=== PATIENT | male | born 1985 | race Caucasian/White ===

== ENCOUNTER 2020-05-09 08:20 | Emergency (ER) | payer SELFPAY ==
[~2020-05-09] VITALS: Ht 177.8 cm; Wt 95.0 kg
[2020-05-09] MEDS ORDERED: IBUPROFEN 600MG TABLET PO ONE (08:45)
[2020-05-09] MEDS ORDERED: LIDOCAINE HCL 1% 20ML VIAL (Pyxis) INJ INFIL ONE (08:45)
[2020-05-09 10:09] VITALS: BP 158/75
== END 2020-05-09 10:11 | disposition home or self-care (01) ==
LOC: ER 08:26
DX: S13.8XXA Sprain of joints and ligaments of other parts of neck, initial encounter (principal); Y93.84 Activity, sleeping; Y92.032 Bedroom in apartment as the place of occurrence of the external cause
CPT/HCPCS: 72040; 99283; J3490